=== PATIENT | female | born 1975 | race Caucasian/White ===

== ENCOUNTER 2017-07-28 07:54 | Emergency (ER) | payer BC ==
[~2017-07-28] VITALS: Ht 157.5 cm; Wt 61.4 kg
[~2017-07-28 07:54] MED LIST: AUGMENTIN 875 M1 TAB PO; BIRTH CONTROL; CARAFATE S1 GM/10 ML PO; IMITREX 6M6 MG/0.5 M SQ; IMITREX100 MG PO; MAXALT MLT10 MG/TAB PO; TOPAMAX50 MG PO; VICODIN 5/5001 UDTAB PO
[2017-07-28 07:57] VITALS: BP 133/63; TEMP 98.1
[2017-07-28 09:26] VITALS: PULSE 69
== END 2017-07-28 09:26 | disposition home or self-care (01) ==
LOC: COL.ER 07:54
DX: G43.909 Migraine, unspecified, not intractable, without status migrainosus (principal)
CPT/HCPCS: J1885; J2550